=== PATIENT | male | born 1995 | race Caucasian/White ===

== ENCOUNTER 2017-02-05 17:58 | Emergency (ER) | payer MEDICAID, OTHER ==
[~2017-02-05] VITALS: Ht 167.6 cm; Wt 79.0 kg
[~2017-02-05 17:58] MED LIST: HYDR-906 PO
[2017-02-05 18:18] VITALS: Ht 167.6 cm; Wt 79.0 kg
[2017-02-05] MEDS ORDERED: SOD CHLORIDE 0.9% 1,000 ML IV ONE (19:30)
[2017-02-05] MEDS ORDERED: DIPHENHYDRAMINE 50 MG INJ IV ONE ×2 (19:30→21:30)
[2017-02-05] MEDS ORDERED: ACETAMINOPHEN 325 MG TAB PO ONE (19:30)
--- NOTE | 2017-02-05 19:37 | ERD ---
ER Documentation Chief Complaint Date/Time DATE: 02/05/17 TIME: 19:33 Chief Complaint HEADACHE X 4 DAYS AND GENERALIZED ITCHINESS TODAY HPI 21-year-old otherwise healthy male presents the emergency department complaining of diffuse body aches, headache, fever, and upper abdominal pain 4 days. Patient states that today he developed a rash which began on his chest and extending to his arms and legs. He notes that his palms and soles are swollen and erythematous. He also states his lip feels swollen and tingly. Patient also states that after taking a long hot bath this evening he noticed "peeling "along his penis. Patient has been treating his pain and fever with Motrin consistently for the past 4 days. He describes his headache as a circumferential, constant, 6 out of 10 throbbing pain, worse when bending down. He denies any head trauma, visual changes, diplopia, vomiting, dysuria, or diarrhea. He is up-to-date on all vaccinations. ROS All systems reviewed and are negative except as per history of present illness. Medications Home Meds Active Scripts Prednisone* (Prednisone*) 20 Mg Tab, 40 MG PO DAILY for 4 Days, TAB Prov:KENNETH NORWOOD PA-C 02/05/17 Diphenhydramine Hcl* (Benadryl*) 25 Mg Cap, 25 MG PO QHS Y for ITCHING for 7 Days, CAP Prov:KENNETH NORWOOD PA-C 02/05/17 Clotrimazole* (Clotrimazole*) 10 Mg Dianelys, 10 MG MM TID for 7 Days, TAB Prov:KENNETH NORWOOD PA-C 02/05/17 Electrolyte,Oral (Pedialyte) 1,000 Ml Solution, 100 ML PO Q6 Y for FEVER for 7 Days, ML Prov:KENNETH NORWOOD PA-C 02/05/17 Acetaminophen* (Tylenol*) 325 Mg Tablet, 2 TAB PO Q6 Y for PAIN AND OR ELEVATED TEMP, #20 TAB Prov:KENNETH NORWOOD PA-C 02/05/17 Hydrocodone/Acetaminophen ([place] 5-325 Tablet) 1 Each Tablet, 1 EACH PO Q6, #14 TAB Prov:DEYANIRA WOODRUFF DO 08/20/16 Allergies Allergies: Coded Allergies: No Known Drug Allergies (Verified Allergy, Unknown, 08/20/16) PMhx/Soc Medical and Surgical Hx: pt denies Medical Hx, pt denies Surgical Hx Hx Alcohol Use: No Hx Substance Use: No Hx Tobacco Use: No Physical Exam Vitals Vital Signs Date Time Temp Pulse Resp B/P Pulse Ox O2 Delivery O2 Flow Rate FiO2 02/05/17 23:32 98.2 75 18 130/90 100 Room Air 02/05/17 18:18 126 20 138/91 98 Physical Exam General: Well developed, well nourished, interactive, no distress Head: Normocephalic, atraumatic EENT: Pupils equally reactive, EOM intact, posterior pharynx without exudates, uvula midline, tympanic membranes without erythema or swelling bilaterally Neck: Supple, no lymphadenopathy Respiratory: Lungs clear bilaterally, no distress Cardiovascular: RRR, no murmurs, rubs, or gallops Abdominal: Soft, non-tender, no right lower quadrant tenderness, non-distended, no peritoneal signs : Pelvic region without evidence of testicular swelling, edema, rash, open sores. Patient is uncircumcised and when the foreskin is retracted, mild amounts of white discharge with superficial excoriation of skin is noted. MSK: No edema, no unilateral swelling, moving all four extremities Nurologic: A and O x3. Cranial nerves II through XII intact. Alert, interactive, appropriate for age Skin: Diffuse maculopapular rash extending the entire body. Erythema and swelling noted on the palms and soles bilaterally. Result Diagram: 02/05/17205402/05/172054 Results 24 hrs Laboratory Tests Test 02/05/17 20:55 02/05/17 22:00 White Blood Count 10.510^3/ul Red Blood Count 5.6310^6/ul Hemoglobin 15.0g/dl Hematocrit 45.8% Mean Corpuscular Volume 81.3fl Mean Corpuscular Hemoglobin 26.6pg Mean Corpuscular Hemoglobin Concent 32.8g/dl Red Cell Distribution Width 12.4% Platelet Count 98611^3/UL Mean Platelet Volume 9.5fl Neutrophils % 81.5% Lymphocytes % 9.3% Monocytes % 3.7% Eosinophils % 4.8% Basophils % 0.2% Nucleated Red Blood Cells % 0.0/100WBC Neutrophils # 8.510^3/ul Lymphocytes # 1.010^3/ul Monocytes # 0.410^3/ul Eosinophils # 0.510^3/ul Basophils # 0.010^3/ul Nucleated Red Blood Cells # 0.010^3/ul Sodium Level 138mmol/L Potassium Level 3.7mmol/L Chloride Level 102mmol/L Carbon Dioxide Level 22mmol/L Anion Gap 18 Blood Urea Nitrogen 8mg/dl Creatinine 0.88mg/dl Glucose Level 102mg/dl Calcium Level 8.9mg/dl Total Bilirubin 0.5mg/dl Direct Bilirubin 0.00mg/dl Indirect Bilirubin 0.5mg/dl Aspartate Amino Transf (AST/SGOT) 146IU/L Alanine Aminotransferase (ALT/SGPT) 273IU/L Alkaline Phosphatase 192IU/L Total Protein 7.9g/dl Albumin 4.0g/dl Globulin 3.90g/dl Albumin/Globulin Ratio 1.02 Lipase 79U/L Monoscreen Positive Urine Color YELLOW Urine Clarity SLIGHTLY CLOUDY Urine pH 7.5 Urine Specific Isabella 1.020 Urine Ketones TRACE Urine Nitrite NEGATIVE Urine Bilirubin 1+ Urine Ictotest NEGATIVE Urine Urobilinogen 4.0 E.U./dL Urine Leukocyte Esterase NEGATIVE Urine Microscopic RBC 0-2/HPF Urine Microscopic WBC 5-10/HPF Urine Squamous Epithelial Cells FEW Urine Bacteria RARE Urine Hemoglobin NEGATIVE Urine Glucose NEGATIVE% Urine Total Protein TRACE Current Medications Medications (Trade) Dose Ordered Sig/Chelsie Route PRN Reason Start Time Stop Time Status Last Admin Dose Admin Acetaminophen (Tylenol Tab) 650 mg ONCE ONCE PO 02/05/17 19:30 02/05/17 19:33 DC 02/05/17 21:06 Diphenhydramine HCl 25 mg 25 mg ONCE ONCE IV 02/05/17 19:30 02/05/17 19:33 DC 02/05/17 21:07 Sodium Chloride (NS) 1,000 ml @ 1,000 mls/hr Q1H ONCE IV 02/05/17 19:30 02/05/17 20:29 DC 02/05/17 21:12 Diphenhydramine HCl (Benadryl) 25 mg ONCE ONCE IV 02/05/17 21:30 02/05/17 21:31 DC 02/05/17 21:32 Procedures/MDM This is an otherwise healthy 21 [id number] male who presents with multiple complaints including body aches, headache, fever and diffuse rash. Patient was tachycardic and febrile upon arrival. Fever well controlled with 1 dose of Tylenol while in the emergency department. ENT exam unremarkable. Abdominal exam unremarkable for hepatosplenomegaly or tenderness to palpation. Monospot test positive. CBC showed no evidence of systemic infection or severe anemia. CMP remarkable for elevated liver enzymes but does not show evidence of electrolyte abnormalities, severe acidosis, alkalosis, or renal failure Lipase showed no evidence of acute pancreatitis. UA showed no evidence of acute infection or hematuria. Patient received a bolus of fluids as well as Tylenol and Benadryl while in the emergency department and reports improvement of symptoms. Genital exam revealed evidence of likely fungal infection. Clinical presentation consistent with acute mononucleosis infection, genital candidiasis, and rash. At this time I have low suspicion for severe systemic illness, sepsis, Morales- Mata syndrome, anaphylaxis. The patient's headache is unlikely related to serious etiology. The patient does not exhibit any clinical signs or symptoms, and has no risk factors to suggest headache etiology such as subarachnoid hemorrhage, acute vertebral or carotid dissection, intracranial mass, epidural, subdural hematoma, dural venous sinus thrombosis, giant cell arteritis, or pseudotumor cerebri. Patient will be provided with antifungal cream, Tylenol, and educated on supportive treatment. Patient advised to avoid contact sports for one month. Patient educated on supportive treatment and advised to follow-up with primary care physician in 1-2 days. Based on patient's history of present illness and physical examination the decision was made to discharge. The patient was re-evaluated after ED treatment and stabilizing measures, and symptoms have improved. There is no evidence of life threatening injuries or illnesses at this time. On re-examination, patient resting in no distress, stable vital signs, reports feeling better and safe for discharge with outpatient follow up with PMD in 1-2 days. Patient given return precautions. Departure Diagnosis: Primary Impression: Headache Headache type: unspecified Headache chronicity pattern: acute headache Intractability: not intractable Qualified Code: R51 - Acute nonintractable headache, unspecified headache type Additional Impressions: Fever Fever type: unspecified Qualified Code: R50.9 - Fever, unspecified fever cause Body aches Genital candidiasis Mononucleosis Rash KENNETH NORWOOD PA-C February 05, 2017 19:37
[2017-02-05 21:04] LABS: ADD SCAN DIFF NO
[2017-02-05 21:06] LABS: BASOPHILS % 0.2 % (0.0-2.0); EOSINOPHILS # 0.5 10^3/ul (0.0-0.5); EOSINOPHILS % 4.8 % (0.0-7.0); HEMATOCRIT 45.8 % (42.0-52.0); LYMPHOCYTES % 9.3 % (18.0-55.0); MEAN CORPUSCULAR HEMOGLOBIN 26.6 pg (29.0-33.0); MEAN CORPUSCULAR HGB CONC 32.8 g/dl (32.0-37.0); MEAN CORPUSCULAR VOLUME 81.3 fl (72.0-104.0); MEAN PLATELET VOLUME 9.5 fl (7.4-10.4); MONOCYTE # 0.4 10^3/ul (0.3-0.9); MONOCYTES % 3.7 % (0.0-13.0); NEUTROPHIL # 8.5 10^3/ul (1.6-7.5); NEUTROPHILS % 81.5 % (30.0-74.0); PLATELET COUNT 318 10^3/UL (140-415); RED BLOOD COUNT 5.63 10^6/ul (4.70-6.10); RED CELL DISTRIBUTION WIDTH 12.4 % (11.5-14.5); WHITE BLOOD COUNT 10.5 10^3/ul (4.8-10.8)
[2017-02-05 21:22] LABS: POTASSIUM 3.7 mmol/L (3.5-5.1)
[2017-02-05 21:24] LABS: BILIRUBIN,INDIRECT 0.5 mg/dl (0-1.1); BILIRUBIN,TOTAL 0.5 mg/dl (0.2-1.3); CREATININE 0.88 mg/dl (0.61-1.24)
[2017-02-05 21:25] LABS: ALBUMIN/GLOBULIN RATIO 1.02; CALCIUM 8.9 mg/dl (8.4-10.2); TOTAL PROTEIN 7.9 g/dl (6.1-8.1)
[2017-02-05 22:26] LABS: ADD UMIC YES; URINE BILIRUBIN (Dip) 1+ (NEGATIVE); URINE BLOOD (Dip) NEGATIVE (NEGATIVE); URINE COLOR YELLOW (YELLOW); URINE GLUCOSE (Dip) NEGATIVE (NEGATIVE); URINE KETONES (Dip) TRACE (NEGATIVE); URINE LEUKOCYTE ESTERASE (Dip) NEGATIVE (NEGATIVE); URINE NITRITE (Dip) NEGATIVE (NEGATIVE); URINE TOTAL PROTEIN (Dip) TRACE (NEGATIVE); URINE UROBILINOGEN (Dip) 4.0 E.U./dL (0.1-1.0)
[2017-02-05 22:37] LABS: ICTOTEST NEGATIVE (NEGATIVE)
[2017-02-05 22:38] LABS: BACTERIA,URINE RARE; SQUAMOUS EPITHELIAL CELL,UR FEW; URINE RBCS 0-2 /HPF (0)
[2017-02-05] MEDS ORDERED: ACET325T33 PO (23:12)
[2017-02-05] MEDS ORDERED: CLOT10TR6 MM (23:12)
[2017-02-05] MEDS ORDERED: ELEC100080 PO (23:12)
[2017-02-05] MEDS ORDERED: BEN25 PO (23:12)
[2017-02-05] MEDS ORDERED: PRED20TA PO (23:12)
[2017-02-05 23:32] VITALS: BP 130/90; PULSE 75; RESP 18; TEMP 98.2
== END 2017-02-05 23:33 | disposition home or self-care (01) ==
LOC: FTE 17:58
DX: R51 Headache (principal); R50.9 Fever, unspecified; B27.90 Infectious mononucleosis, unspecified without complication; R21 Rash and other nonspecific skin eruption; B37.89 Other sites of candidiasis
CPT/HCPCS: 80053; 81001; 83690; 85025; 86308; 96374; J1200; J7030; Z7502; Z7610; 81003

== ENCOUNTER 2017-08-02 12:05 | Emergency (ER) | payer MEDICAID ==
[~2017-08-02] VITALS: Wt 89.0 kg
[~2017-08-02 12:05] MED LIST changes: +ACET325T33 PO; +BEN25 PO; +CLOT10TR6 MM; +ELEC100080 PO; +PRED20TA PO
[2017-08-02] MEDS ORDERED: DIPHTH/TET/ACEL PERTUSS (ADULT) 0.5 ML VIAL IM* ONE (13:30)
[2017-08-02] MEDS ORDERED: CEPH-443 PO (13:31)
[2017-08-02] MEDS ORDERED: IBUP-1542 PO (13:31)
--- NOTE | 2017-08-02 16:39 | ERD ---
ER Documentation Chief Complaint Chief Complaint LAC TO LEFT 2ND FINGER HPI 21-year-old male patient with no significant past medical history presents to the ED complaining of a laceration to his left index finger. Patient reports that he is right-handed. Denies any loss of sensation, loss of range of motion , increased redness, swelling, fever, chills. She is up-to-date with his vaccinations. ROS All systems reviewed and are negative except as per history of present illness. Medications Home Meds Active Scripts Cephalexin* (Keflex*) 500 Mg Capsule, 500 MG PO QID for 7 Days, CAP Prov:SULMA AN PA-C 08/02/17 Ibuprofen* (Motrin*) 600 Mg Tab, 600 MG PO Q6, #30 TAB Prov:SULMA AN PA-C 08/02/17 Prednisone* (Prednisone*) 20 Mg Tab, 40 MG PO DAILY for 4 Days, TAB Prov:KENNETH NORWOOD PA-C 02/05/17 Diphenhydramine Hcl* (Benadryl*) 25 Mg Cap, 25 MG PO QHS Y for ITCHING for 7 Days, CAP Prov:KENNETH NORWOOD PA-C 02/05/17 Clotrimazole* (Clotrimazole*) 10 Mg Dianelys, 10 MG MM TID for 7 Days, TAB Prov:KENNETH NORWOOD PA-C 02/05/17 Electrolyte,Oral (Pedialyte) 1,000 Ml Solution, 100 ML PO Q6 Y for FEVER for 7 Days, ML Prov:KENNETH NORWOOD PA-C 02/05/17 Acetaminophen* (Tylenol*) 325 Mg Tablet, 2 TAB PO Q6 Y for PAIN AND OR ELEVATED TEMP, #20 TAB Prov:KENNETH NORWOOD PA-C 02/05/17 Hydrocodone/Acetaminophen ([place] 5-325 Tablet) 1 Each Tablet, 1 EACH PO Q6, #14 TAB Prov:DEAYNIRA WOODRUFF DO 08/20/16 Allergies Allergies: Coded Allergies: No Known Drug Allergies (Verified Allergy, Unknown, 08/20/16) PMhx/Soc Medical and Surgical Hx: pt denies Medical Hx, pt denies Surgical Hx Hx Alcohol Use: No Hx Substance Use: No Hx Tobacco Use: No Smoking Status: Never smoker Physical Exam Vitals Vital Signs Date Time Temp Pulse Resp B/P Pulse Ox O2 Delivery O2 Flow Rate FiO2 08/02/17 12:17 98.0 8 18 117/71 99 Physical Exam Const: [id number], well-nourished. In no acute distress. Head: Atraumatic, normocephalic Eyes: Normal Conjunctiva without injection ENT: Normal external ear, nose and mouth. Neck: Full range of motion. No meningismus. Resp: Clear to auscultation bilaterally. No wheezing, rhonchi, rales, or crackles. No accessory muscle use. No retractions. Cardio: Regular rate and rhythm, no murmurs Skin: No petechiae or rashes Back: No midline tenderness. No CVA tenderness. Ext: No cyanosis, or edema. Cap refill less than 2 seconds. Distal pulses intact bilaterally. Slight partial skin avulsion noted at the volar aspect and tip of patient's left index finger with no surrounding erythema or edema. No visualization of tendons or bony prominences. No visualization of foreign bodies. Patient has full range of motion of the DIP, PIP, MCP joints bilaterally. Neur: Awake and alert. Normal gait and coordination. Muscle strength 5/5. Sensation intact bilaterally. Psych: Normal Mood and Affect Results 24 hrs Current Medications Medications (Trade) Dose Ordered Sig/Chelsie Route PRN Reason Start Time Stop Time Status Last Admin Dose Admin Diphtheria/ Tetanus/Acell Pertussis (Adacel) 0.5 ml ONCE ONCE IM* 08/02/17 13:30 08/02/17 13:31 DC 08/02/17 13:22 Procedures/MDM This is a 21-year-old male patient with no significant past medical history presents to the ED complaining of a left index finger laceration. Patient is afebrile and nontoxic-appearing. Correction of pulse - 80 bpm. This occurred 2 days patient has been cleaning it with hydrogen peroxide. No indication for laceration repair. No signs of cellulitis or infection. No erythema, purulent discharge, bleeding noted. Patient is neurovascularly intact. No evidence of compartment syndrome, neurologic injury, vascular injury, open joint, tendon laceration, or foreign body. Patient is appropriate for outpatient follow up. Keflex was prescribed to patient for infection prevention. Instructed patient to return to the ED sooner for any worsening symptoms. Follow up with primary care physician in 1-2 days. Patient's questions were answered. Patient understood and agreed with discharge plan. Departure Diagnosis: Primary Impression: Avulsion of skin of finger Encounter type: initial encounter Qualified Code: S61.209A - Avulsion of skin of finger, initial encounter Condition: Stable Patient Instructions: Skin Avulsion Referrals: [facility] YOU HAVE RECEIVED A MEDICAL SCREENING EXAM AND THE RESULTS INDICATE THAT YOU DO NOT HAVE A CONDITION THAT REQUIRES URGENT TREATMENT IN THE EMERGENCY DEPARTMENT. FURTHER EVALUATION AND TREATMENT OF YOUR CONDITION CAN WAIT UNTIL YOU ARE SEEN IN YOUR DOCTORS OFFICE WITHIN THE NEXT 1-2 DAYS. IT IS YOUR RESPONSIBILITY TO MAKE AN APPOINTMENT FOR FOLOW-UP CARE. IF YOU HAVE A PRIMARY DOCTOR --you should call your primary doctor and schedule an appointment IF YOU DO NOT HAVE A PRIMARY DOCTOR YOU CAN CALL OUR PHYSICIAN REFERRAL HOTLINE AT IF YOU CAN NOT AFFORD TO SEE A PHYSICIAN YOU CAN CHOSE FROM THE FOLLOWING [facility] [address] [facility] [address] [facility] [address] [facility] [address] [facility] [address] [facility] [facility]. [address] [facility]. [facility] YOU HAVE RECEIVED A MEDICAL SCREENING EXAM AND THE RESULTS INDICATE THAT YOU DO NOT HAVE A CONDITION THAT REQUIRES URGENT TREATMENT IN THE EMERGENCY DEPARTMENT. FURTHER EVALUATION AND TREATMENT OF YOUR CONDITION CAN WAIT UNTIL YOU ARE SEEN IN YOUR DOCTORS OFFICE WITHIN THE NEXT 1-2 DAYS. IT IS YOUR RESPONSIBILITY TO MAKE AN APPOINTMENT FOR FOLOW-UP CARE. IF YOU HAVE A PRIMARY DOCTOR --you should call your primary doctor and schedule and appointment IF YOU DO NOT HAVE A PRIMARY DOCTOR YOU CAN CALL OUR PHYSICIAN REFERRAL HOTLINE AT . IF YOU CAN NOT AFFORD TO SEE A PHYSICIAN YOU CAN CHOSE FROM THE FOLLOWING [facility] INSTITUTIONS: [facility] [address] [place] [address] [facility] [address] [place] [address] [facility] [address] [place] [address] [facility] URGENT [facility]SPECIALTIES Additional Instructions: Call your primary care doctor TOMORROW for an appointment during the next 2-3 days.See the doctor sooner or return here if your condition worsens before your appointment time. Follow up in 2 days in your clinic for wound check. SULMA AN PA-C Aug 02, 2017 16:39 SULMA AN PA-C Aug 02, 2017 16:39
== END 2017-08-02 15:49 | disposition home or self-care (01) ==
LOC: FTE 12:05
DX: S61.201A Unspecified open wound of left index finger without damage to nail, initial encounter (principal); X58.XXXA Exposure to other specified factors, initial encounter; Y92.9 Unspecified place or not applicable
CPT/HCPCS: 90471; 90715; Z7502

== ENCOUNTER 2017-10-02 23:37 | Emergency (ER) | END 2017-10-03 05:06 | disposition left against medical advice (07) ==

== ENCOUNTER 2019-07-29 11:15 | Emergency (ER) | payer MEDICAID ==
[~2019-07-29] VITALS: Ht 167.6 cm; Wt 91.9 kg
[~2019-07-29 11:15] MED LIST changes: +CEPH-443 PO; +CLOT10TR MM; -CLOT10TR6 MM; +HYDR-4011 PO; -HYDR-906 PO; +IBUP-1542 PO
[2019-07-29 11:24] VITALS: BP 127/68; PULSE 84; RESP 18; Ht 167.6 cm; Wt 91.9 kg
== END 2019-07-29 12:25 | disposition home or self-care (01) ==
LOC: FTE 11:15
DX: J02.9 Acute pharyngitis, unspecified (principal)
CPT/HCPCS: 99282